=== PATIENT | male | born 1980 | race Caucasian/White ===

== ENCOUNTER 2018-11-29 00:04 | Inpatient (IN) | payer OTHER ==
[2018-11-29] MEDS: HALOPERIDOL 5 MG INJ IV (00:47)
[2018-11-29] MEDS: CAPSAICIN 0.025% 60 GM CR TOP (00:48)
[2018-11-29 01:04] LABS: ADD MAN DIFF? NO
[2018-11-29 01:05] LABS: BASOPHIL # 0.1 10^3/ul (0.0-0.1); BASOPHILS % 0.5 % (0.0-2.0); HEMATOCRIT 51.8 % (42.0-52.0); HEMOGLOBIN 17.6 g/dl (14.0-18.0); LYMPHOCYTES % 5.2 % (15.0-51.0); MEAN CORPUSCULAR HEMOGLOBIN 29.7 pg (29.0-33.0); MEAN CORPUSCULAR VOLUME 87.5 fl (82.0-101.0); MEAN PLATELET VOLUME 10.6 fl (7.4-10.4); MONOCYTE # 0.5 10^3/ul (0.3-0.9); MONOCYTES % 2.8 % (0.0-11.0); NEUTROPHIL # 17.7 10^3/ul (1.6-7.5); NEUTROPHILS % 90.6 % (39.0-77.0); PLATELET COUNT 256 10^3/UL (140-415); RED BLOOD COUNT 5.92 10^6/ul (4.70-6.10); RED CELL DISTRIBUTION WIDTH 11.5 % (11.5-14.5)
[2018-11-29 01:05] LABS: WHITE BLOOD COUNT 19.5 10^3/ul (4.8-10.8)
[2018-11-29 01:26] LABS: ALANINE AMINOTRANSFERASE 16 IU/L (13-69); ALBUMIN 5.5 g/dl (3.3-4.9); ALBUMIN/GLOBULIN RATIO 1.34; ALKALINE PHOSPHATASE 126 IU/L (42-121); ANION GAP 21 (5-13); ASPARTATE AMINO TRANSFERASE 25 IU/L (15-46); BILIRUBIN,INDIRECT 0.9 mg/dl (0-1.1); BILIRUBIN,TOTAL 0.9 mg/dl (0.2-1.3); BLOOD UREA NITROGEN 10 mg/dl (7-20); CALCIUM 10.7 mg/dl (8.4-10.2); CARBON DIOXIDE 23 mmol/L (21-31); CHLORIDE 97 mmol/L (97-110); CREATININE 0.81 mg/dl (0.61-1.24); Estimated GFR > 60 mL/min (>60); GLUCOSE 341 mg/dl (70-220); LIPASE 53 U/L (23-300); POTASSIUM 4.3 mmol/L (3.5-5.1); SODIUM 141 mmol/L (135-144); TOTAL PROTEIN 9.6 g/dl (6.1-8.1)
[2018-11-29] MEDS: ONDANSETRON 4 MG INJ IV (01:33)
[2018-11-29] MEDS: morphine 4 MG/ML VIAL IV ×2 (01:33→03:16)
[2018-11-29] MEDS: SODIUM CHLORIDE 0.9% 1L BAG IV* (02:02)
[2018-11-29] MEDS: METOCLOPRAMIDE 10 MG INJ IV ×4 (03:16→17:38)
[2018-11-29] MEDS ORDERED: ONDANSETRON 4 MG INJ IV (04:30)
[2018-11-29] MEDS: morphine 2 MG INJ IV ×3 (07:57→17:50)
[2018-11-29] MEDS: SOD CHLORIDE 0.9% 1,000 ML IV ×3 (08:00→17:50)
[2018-11-29 08:15] LABS: ADD MAN DIFF? NO
[2018-11-29 08:18] LABS: WHITE BLOOD COUNT 15.9 10^3/ul (4.8-10.8)
[2018-11-29 08:18] LABS: BASOPHIL # 0.1 10^3/ul (0.0-0.1); BASOPHILS % 0.3 % (0.0-2.0); EOSINOPHILS % 0.1 % (0.0-7.0); HEMOGLOBIN 14.8 g/dl (14.0-18.0); LYMPHOCYTES # 1.5 10^3/ul (0.8-2.9); LYMPHOCYTES % 9.3 % (15.0-51.0); MEAN CORPUSCULAR HEMOGLOBIN 30.1 pg (29.0-33.0); MEAN CORPUSCULAR HGB CONC 34.4 g/dl (32.0-37.0); MEAN CORPUSCULAR VOLUME 87.4 fl (82.0-101.0); MEAN PLATELET VOLUME 10.3 fl (7.4-10.4); MONOCYTE # 0.8 10^3/ul (0.3-0.9); MONOCYTES % 5.1 % (0.0-11.0); NEUTROPHIL # 13.4 10^3/ul (1.6-7.5); NEUTROPHILS % 84.6 % (39.0-77.0); PLATELET COUNT 262 10^3/UL (140-415); RED BLOOD COUNT 4.92 10^6/ul (4.70-6.10); RED CELL DISTRIBUTION WIDTH 11.7 % (11.5-14.5)
[2018-11-29] MEDS ORDERED: DEXTROSE 50% 50 ML SYRINGE IV ×2 (08:30)
[2018-11-29] MEDS ORDERED: GLUCOSE GEL 15 GRAM TUBE BUCCAL (08:30)
[2018-11-29] MEDS ORDERED: GLUCAGON 1 MG INJ IM (08:30)
[2018-11-29] MEDS ORDERED: GLUCOSE GEL 15 GRAM TUBE PO ×2 (08:30)
[2018-11-29 08:32] LABS: HEMOGLOBIN A1C 9.3 % (0-5.9)
[2018-11-29 08:56] LABS: ANION GAP 13 (5-13); BLOOD UREA NITROGEN 11 mg/dl (7-20); CARBON DIOXIDE 26 mmol/L (21-31); CHLORIDE 99 mmol/L (97-110); CHOLESTEROL 168 mg/dl (100-200); CREATININE 0.71 mg/dl (0.61-1.24); Estimated GFR > 60 mL/min (>60); GLUCOSE 268 mg/dl (70-220); HDL CHOLESTEROL 41 mg/dl (28-63); LDL CHOLESTEROL,CALCULATED 115 mg/dl; POTASSIUM 4.1 mmol/L (3.5-5.1); SODIUM 138 mmol/L (135-144); TRIGLYCERIDES 60 mg/dl (0-149)
[2018-11-29] MEDS: BUSPIRONE 5 MG TAB PO ×3 (09:00→13:11)
[2018-11-29] MEDS: LAMOTRIGINE 100 MG TAB PO ×2 (09:00→18:30)
[2018-11-29] MEDS: INSULIN ASPART [NOVOLOG] 3 ML PEN SC ×3 (09:33→17:38)
[2018-11-29 09:44] LABS: AMPHETAMINE/METHAMPHETAMINE Negative (NEGATIVE); BARBITURATES Negative (NEGATIVE); COCAINE Negative (NEGATIVE)
[2018-11-29 09:57] LABS: BENZODIAZEPINES Positive (NEGATIVE); CANNABINOIDS Positive (NEGATIVE); OPIATES Positive (NEGATIVE)
[2018-11-29] MEDS ORDERED: INSULIN ASPART [NOVOLOG] 3 ML PEN SC (12:00)
[2018-11-29] MEDS: DIPHENHYDRAMINE 25 MG CAP PO (19:27)
[2018-11-29] MEDS ORDERED: LITHIUM CARBONATE 300 MG CAP PO (21:00)
[2018-11-29] MEDS ORDERED: INSULIN GLARGINE [LANTus] (100 UNITS/ML) SYG SC (21:00)
[2018-11-29] MEDS ORDERED: LORAZEPAM 1 MG TAB PO (21:00)
[2018-11-30] MEDS ORDERED: ACCU-CHEK XX (02:00)
== END 2018-11-29 19:35 | disposition home or self-care (01) | DRG 74 ==
LOC: E/R 00:04 → PP2 01:57
DX: E11.43 Type 2 diabetes mellitus with diabetic autonomic (poly)neuropathy (principal); K31.84 Gastroparesis; F31.9 Bipolar disorder, unspecified
CPT/HCPCS: 74176; 80048; 80053; 80061; 80178; 80307; 82962; 83036; 83690; 85025; 93005; 96374; 96375; 99285-25

== ENCOUNTER 2019-03-03 12:32 | Observation (INO) | payer OTHER ==
[2019-03-03 13:17] LABS: ADD MAN DIFF? NO
[2019-03-03 13:19] LABS: WHITE BLOOD COUNT 22.6 10^3/ul (4.8-10.8)
[2019-03-03 13:19] LABS: BASOPHIL # 0.1 10^3/ul (0.0-0.1); BASOPHILS % 0.5 % (0.0-2.0); HEMATOCRIT 51.7 % (42.0-52.0); HEMOGLOBIN 17.7 g/dl (14.0-18.0); LYMPHOCYTES # 1.2 10^3/ul (0.8-2.9); LYMPHOCYTES % 5.2 % (15.0-51.0); MEAN CORPUSCULAR HEMOGLOBIN 29.3 pg (29.0-33.0); MEAN CORPUSCULAR HGB CONC 34.2 g/dl (32.0-37.0); MEAN CORPUSCULAR VOLUME 85.5 fl (82.0-101.0); MEAN PLATELET VOLUME 10.8 fl (7.4-10.4); MONOCYTE # 1.1 10^3/ul (0.3-0.9); NEUTROPHILS % 88.5 % (39.0-77.0); PLATELET COUNT 281 10^3/UL (140-415); RED BLOOD COUNT 6.05 10^6/ul (4.70-6.10); RED CELL DISTRIBUTION WIDTH 11.5 % (11.5-14.5)
[2019-03-03] MEDS: METOCLOPRAMIDE 10 MG INJ IV (13:25)
[2019-03-03] MEDS: ONDANSETRON 4 MG INJ IV (13:25)
[2019-03-03] MEDS: SOD CHLORIDE 0.9% IV (13:36)
[2019-03-03] MEDS: LORAZEPAM 2 MG INJ IV (13:46)
[2019-03-03] MEDS: HYDROmorphONE 0.5 MG/0.5 ML SYG IV ×2 (14:07→20:00)
[2019-03-03 14:46] LABS: ALANINE AMINOTRANSFERASE 34 IU/L (13-69); ALBUMIN 4.9 g/dl (3.3-4.9); ALBUMIN/GLOBULIN RATIO 1.53; ALKALINE PHOSPHATASE 105 IU/L (42-121); ANION GAP 19 (5-13); ASPARTATE AMINO TRANSFERASE 18 IU/L (15-46); BILIRUBIN,INDIRECT 1.2 mg/dl (0-1.1); BILIRUBIN,TOTAL 1.2 mg/dl (0.2-1.3); BLOOD UREA NITROGEN 12 mg/dl (7-20); CALCIUM 9.4 mg/dl (8.4-10.2); CARBON DIOXIDE 16 mmol/L (21-31); CHLORIDE 104 mmol/L (97-110); CREATININE 0.69 mg/dl (0.61-1.24); Estimated GFR > 60 mL/min (>60); GLUCOSE 358 mg/dl (70-220); LIPASE 21 U/L (23-300); POTASSIUM 4.4 mmol/L (3.5-5.1); SODIUM 139 mmol/L (135-144); TOTAL PROTEIN 8.1 g/dl (6.1-8.1)
[2019-03-03 14:47] LABS: PHOSPHORUS 2.7 mg/dl (2.5-4.9)
[2019-03-03 14:47] LABS: ETHANOL < 10.0 mg/dl (0-0)
[2019-03-03] MEDS ORDERED: SOD CHLORIDE 0.9% 1,000 ML IV (15:30)
[2019-03-03] MEDS ORDERED: INSULIN REGULAR, HUMAN 100 UNIT in SOD CHLORIDE 0.9% 100 ML IV (15:30)
[2019-03-03] MEDS ORDERED: D10/0.45% NACL + KCL 30 MEQ 1,000 ML IV (15:30)
[2019-03-03] MEDS ORDERED: DEXTROSE 50% 50 ML SYRINGE IV ×4 (15:30→18:00)
[2019-03-03] MEDS ORDERED: DEXTROSE 10%/0.45% NACL 1,000 ML IV (15:30)
[2019-03-03] MEDS ORDERED: NS + KCL 30 MEQ 1,000 ML IV (15:30)
[2019-03-03] MEDS ORDERED: D10/0.45% NACL + KCL 40 MEQ 1,000 ML IV (15:30)
[2019-03-03] MEDS ORDERED: NS + KCL 40 MEQ 1,000 ML IV (15:30)
[2019-03-03 16:12] LABS: HEMOGLOBIN A1C 9.7 % (0-5.9)
[2019-03-03] MEDS: LACTATED RINGER'S 850 ML IV (16:15)
[2019-03-03 16:17] LABS: AADO2 Arterial 21.8 mmHg (7.0-24.0); Allen Test ACCEPTAB; Arterial Base Excess -3.9 mmol/L (-3.0-3); Arterial Blood Gas Oxygen Sat 97.8 mmHG (95.0-98.0); Arterial COHb 0.6 % (0.0-3.0); Arterial Fraction of Oxyhgb 96.9 % (93.0-99.0); Arterial HCO3 17.3 mmol/L (22.0-26.0); Arterial MetHb 0.3 % (0.0-1.5); Arterial pCO2 24.2 mmhg (35-45); MODE ROOM AIR; Site Left Radial
[2019-03-03] MEDS: PROCHLORPERAZINE 10 MG INJ IV (16:17)
[2019-03-03] MEDS: PIPER-TAZO 3.375 GM IV (PMX) 100 ML IVPB (16:25)
[2019-03-03] MEDS ORDERED: GLUCOSE GEL 15 GRAM TUBE PO ×2 (18:00)
[2019-03-03] MEDS ORDERED: GLUCAGON 1 MG INJ IM (18:00)
[2019-03-03] MEDS ORDERED: morphine 2 MG INJ IV (18:00)
[2019-03-03] MEDS ORDERED: GLUCOSE GEL 15 GRAM TUBE BUCCAL (18:00)
[2019-03-03] MEDS: SOD CHLORIDE 0.9% 1,000 ML IV (18:40)
[2019-03-03] MEDS: INSULIN ASPART [NOVOLOG] 3 ML PEN SC ×2 (22:40)
[2019-03-04] MEDS: HYDROmorphONE 0.5 MG/0.5 ML SYG IV ×4 (01:28→14:41)
[2019-03-04] MEDS: SOD CHLORIDE 0.9% 1,000 ML IV ×2 (02:30→10:30)
[2019-03-04] MEDS: ALPRAZOLAM 1 MG TAB PO (03:06)
[2019-03-04 05:41] LABS: AMPHETAMINE/METHAMPHETAMINE NEGATIVE (NEGATIVE); BARBITURATES NEGATIVE (NEGATIVE); BENZODIAZEPINES NEGATIVE (NEGATIVE); CANNABINOIDS POSITIVE (NEGATIVE); COCAINE NEGATIVE (NEGATIVE); OPIATES POSITIVE (NEGATIVE)
[2019-03-04] MEDS: ONDANSETRON 4 MG INJ IV ×2 (06:37→10:31)
[2019-03-04 06:45] LABS: ADD MAN DIFF? NO
[2019-03-04 06:50] LABS: BASOPHIL # 0.1 10^3/ul (0.0-0.1); BASOPHILS % 0.4 % (0.0-2.0); EOSINOPHILS % 0.2 % (0.0-7.0); HEMATOCRIT 41.6 % (42.0-52.0); HEMOGLOBIN 14.2 g/dl (14.0-18.0); LYMPHOCYTES # 2.4 10^3/ul (0.8-2.9); LYMPHOCYTES % 14.9 % (15.0-51.0); MEAN CORPUSCULAR HEMOGLOBIN 29.3 pg (29.0-33.0); MEAN CORPUSCULAR HGB CONC 34.1 g/dl (32.0-37.0); MEAN PLATELET VOLUME 10.7 fl (7.4-10.4); MONOCYTE # 1.1 10^3/ul (0.3-0.9); MONOCYTES % 6.7 % (0.0-11.0); NEUTROPHIL # 12.4 10^3/ul (1.6-7.5); NEUTROPHILS % 77.5 % (39.0-77.0); PLATELET COUNT 215 10^3/UL (140-415); RED BLOOD COUNT 4.84 10^6/ul (4.70-6.10); RED CELL DISTRIBUTION WIDTH 11.7 % (11.5-14.5)
[2019-03-04 07:31] LABS: ANION GAP 8 (5-13); BLOOD UREA NITROGEN 12 mg/dl (7-20); CALCIUM 8.4 mg/dl (8.4-10.2); CARBON DIOXIDE 22 mmol/L (21-31); CHLORIDE 104 mmol/L (97-110); CREATININE 0.66 mg/dl (0.61-1.24); Estimated GFR > 60 mL/min (>60); GLUCOSE 230 mg/dl (70-220); POTASSIUM 3.9 mmol/L (3.5-5.1); SODIUM 134 mmol/L (135-144)
[2019-03-04] MEDS: INSULIN ASPART [NOVOLOG] 3 ML PEN SC ×5 (08:15→17:35)
[2019-03-04] MEDS ORDERED: INSULIN ASPART [NOVOLOG] 3 ML PEN SC (11:50)
[2019-03-04] MEDS: LORAZEPAM 2 MG INJ IV (13:02)
[2019-03-04] MEDS: METOCLOPRAMIDE 10 MG INJ IV (13:02)
[2019-03-04] MEDS ORDERED: INSULIN GLARGINE [LANtus] 3 ML PEN SC (21:00)
[2019-03-04] MEDS ORDERED: INSULIN GLARGINE [LANTus] (100 UNITS/ML) SYG SC (21:00)
== END 2019-03-04 17:18 | disposition home or self-care (01) ==
LOC: E/R 12:32 → TEL 15:38
PROVIDERS: Internal Medicine
DX: E11.43 Type 2 diabetes mellitus with diabetic autonomic (poly)neuropathy (principal); K31.84 Gastroparesis; E11.65 Type 2 diabetes mellitus with hyperglycemia; Z79.4 Long term (current) use of insulin; F41.9 Anxiety disorder, unspecified; F31.9 Bipolar disorder, unspecified; D72.829 Elevated white blood cell count, unspecified; F12.10 Cannabis abuse, uncomplicated
CPT/HCPCS: 36415; 36600; 80048; 80053; 80307; 82803; 82962; 83036; 83690; 83735; 84100; 85025; 87040-91; 87086; 96361; 96374; 96375; 99217; 99285-25; G0378